=== PATIENT | female | born 1985 | race American Indian/Alaskan Native ===

== ENCOUNTER 2019-06-14 13:46 | Emergency (ER) | payer SELFPAY ==
--- NOTE | 2019-06-14 14:55 | Event Note ---
ED Screening Note Date of service: 06/14/19 Time: 14:49 ED Screening Note: 33 y/o female comes in for 3 week history of abd pain. Has been vomiting for 3 week. Just spitting in triage. LMP 04/21/19. . No home preg. No vag bleeding. This initial assessment/diagnostic orders/clinical plan/treatment(s) is/are subject to change based on patients health status, clinical progression and re- assessment by fellow clinical providers in the ED. Further treatment and workup at subsequent clinical providers discretion. Patient/guardian urged not to elope from the ED as their condition may be serious if not clinically assessed and managed. Initial orders include:
[2019-06-14 15:27] LABS: Basophils # (Auto) 0.1 K/mm3 (0.0-0.1); Basophils % (Auto) 0.8 % (0.0-1.8); Eosinophils % (Auto) 0.3 % (0.0-4.3); Hematocrit 37.2 % (30.3-42.9); Hemoglobin 12.5 gm/dl (10.1-14.3); Lymphocytes # (Auto) 1.9 K/mm3 (1.2-5.4); Lymphocytes % (Auto) 23.6 % (13.4-35.0); Mean Corpuscular HGB Conc 34 % (30-34); Mean Corpuscular Volume 92 fl (79-97); Monocytes % (Auto) 12.6 % (0.0-7.3); Platelet Count 344 K/mm3 (140-440); Red Blood Count 4.07 M/mm3 (3.65-5.03); Red Cell Distribution Width 14.4 % (13.2-15.2)
[2019-06-14 15:44] LABS: Bilirubin,Urine NEG (Negative); Blood,Urine NEG (Negative); Color,Urine Yellow (Yellow); Mucus,Urine 2+ /HPF; Protein,Urine <15 mg/dL mg/dL (Negative)
[2019-06-14 15:48] LABS: Alanine Aminotransferase 9 units/L (7-56); Albumin 3.9 g/dL (3.9-5); BUN/Creatinine Ratio 16; Blood Urea Nitrogen 8 mg/dL (7-17); Calcium 8.8 mg/dL (8.4-10.2); Hemolysis Index 1
--- NOTE | 2019-06-14 17:23 | Emergency Department Report ---
HPI - General Chief Complaint: Abdominal Pain Time Seen by Provider: 06/14/19 14:49 - HPI HPI: 33 YO TO ER WITH N/V FOR SEVERAL DAYS. SHE IS CONCERNED SHE IS . LMP 6/3. . NO VAG BLEEDING OR ABD PAIN. ED Past Medical Hx - Past Medical History Previous Medical History?: No - Surgical History Past Surgical History?: No - Family History Family history: no significant - Social History Smoking Status: Never Smoker Substance Use Type: None - Medications Home Medications: Home Medications Medication Instructions Recorded Confirmed Last Taken Type Ondansetron [Zofran Odt] 4 mg PO Q8HR PRN #10 tab.rapdis 06/14/19 Unknown Rx ED Review of Systems ROS: Stated complaint: VOMIT/ POSS Other details as noted in HPI Comment: All other systems reviewed and negative Physical Exam - Physical Exam Vital Signs: Vital Signs 06/14/19 14:49 Temperature 97.7 F Pulse Rate 87 Respiratory 18 Rate Blood Pressure 120/87 O2 Sat by Pulse 100 Oximetry Physical Exam: ALERT AND ORIENTED FAMILY IS INTERPRETING S1S2 LUNGS CTA ABD SNT NO CVA TENDERNESS ED Course Vital Signs 06/14/19 14:49 Temperature 97.7 F Pulse Rate 87 Respiratory 18 Rate Blood Pressure 120/87 O2 Sat by Pulse 100 Oximetry ED Medical Decision Making - Lab Data Result diagrams: 06/14/19 15:12 06/14/19 15:12 - Radiology Data Radiology results: report reviewed, image reviewed - Medical Decision Making Lab Results 06/14/19 06/14/19 06/14/19 Range/Units 15:12 15:12 15:12 WBC 8.1 (4.5-11.0) K/mm3 RBC 4.07 (3.65-5.03) M/mm3 Hgb 12.5 (10.1-14.3) gm/dl Hct 37.2 (30.3-42.9) % MCV 92 (79-97) fl MCH 31 (28-32) pg MCHC 34 (30-34) % RDW 14.4 (13.2-15.2) % Plt Count 344 (140-440) K/mm3 Lymph % (Auto) 23.6 (13.4-35.0) % [place] % (Auto) 12.6 H (0.0-7.3) % Eos % (Auto) 0.3 (0.0-4.3) % Baso % (Auto) 0.8 (0.0-1.8) % Lymph # 1.9 (1.2-5.4) K/mm3 [place] # 1.0 H (0.0-0.8) K/mm3 Eos # 0.0 (0.0-0.4) K/mm3 Baso # 0.1 (0.0-0.1) K/mm3 Seg Neutrophils % 62.7 (40.0-70.0) % Seg Neutrophils # 5.1 (1.8-7.7) K/mm3 Sodium 136 L (137-145) mmol/L Potassium 4.1 (3.6-5.0) mmol/L Chloride 102.4 (98-107) mmol/L Carbon Dioxide 23 (22-30) mmol/L Anion Gap 15 mmol/L BUN 8 (7-17) mg/dL Creatinine 0.5 L (0.7-1.2) mg/dL Estimated GFR > 60 ml/min BUN/Creatinine Ratio 16 % Glucose 82 (65-100) mg/dL Calcium 8.8 (8.4-10.2) mg/dL Total Bilirubin 0.30 (0.1-1.2) mg/dL AST 13 (5-40) units/L ALT 9 (7-56) units/L Alkaline Phosphatase 55 (35-129) units/L Total Protein 7.7 (6.3-8.2) g/dL Albumin 3.9 (3.9-5) g/dL Albumin/Globulin Ratio 1.0 % HCG, Quant 088960 H (0-4) mIU/mL Urine Color (Yellow) Urine Turbidity (Clear) Urine pH (5.0-7.0) Ur Specific [place] (1.003-1.030) Urine Protein (Negative) mg/dL Urine Glucose (UA) (Negative) mg/dL Urine Ketones (Negative) mg/dL Urine Blood (Negative) Urine Nitrite (Negative) Urine Bilirubin (Negative) Urine Urobilinogen (<2.0) mg/dL Ur Leukocyte Esterase (Negative) Urine WBC (Auto) (0.0-6.0) /HPF Urine RBC (Auto) (0.0-6.0) /HPF U Epithel Cells (Auto) (0-13.0) /HPF Urine Mucus /HPF 08/05/19 Range/Units 15:27 WBC (4.5-11.0) K/mm3 RBC (3.65-5.03) M/mm3 Hgb (10.1-14.3) gm/dl Hct (30.3-42.9) % MCV (79-97) fl MCH (28-32) pg MCHC (30-34) % RDW (13.2-15.2) % Plt Count (140-440) K/mm3 Lymph % (Auto) (13.4-35.0) % [place] % (Auto) (0.0-7.3) % Eos % (Auto) (0.0-4.3) % Baso % (Auto) (0.0-1.8) % Lymph # (1.2-5.4) K/mm3 [place] # (0.0-0.8) K/mm3 Eos # (0.0-0.4) K/mm3 Baso # (0.0-0.1) K/mm3 Seg Neutrophils % (40.0-70.0) % Seg Neutrophils # (1.8-7.7) K/mm3 Sodium (137-145) mmol/L Potassium (3.6-5.0) mmol/L Chloride (98-107) mmol/L Carbon Dioxide (22-30) mmol/L Anion Gap mmol/L BUN (7-17) mg/dL Creatinine (0.7-1.2) mg/dL Estimated GFR ml/min BUN/Creatinine Ratio % Glucose (65-100) mg/dL Calcium (8.4-10.2) mg/dL Total Bilirubin (0.1-1.2) mg/dL AST (5-40) units/L ALT (7-56) units/L Alkaline Phosphatase (35-129) units/L Total Protein (6.3-8.2) g/dL Albumin (3.9-5) g/dL Albumin/Globulin Ratio % HCG, Quant (0-4) mIU/mL Urine Color Yellow (Yellow) Urine Turbidity Slightly-cloudy (Clear) Urine pH 6.0 (5.0-7.0) Ur Specific [place] 1.026 (1.003-1.030) Urine Protein <15 mg/dl (Negative) mg/dL Urine Glucose (UA) Neg (Negative) mg/dL Urine Ketones Neg (Negative) mg/dL Urine Blood Neg (Negative) Urine Nitrite Neg (Negative) Urine Bilirubin Neg (Negative) Urine Urobilinogen 2.0 (<2.0) mg/dL Ur Leukocyte Esterase Neg (Negative) Urine WBC (Auto) 1.0 (0.0-6.0) /HPF Urine RBC (Auto) 4.0 (0.0-6.0) /HPF U Epithel Cells (Auto) 8.0 (0-13.0) /HPF Urine Mucus 2+ /HPF Vital Signs 06/14/19 14:49 Temperature 97.7 F Pulse Rate 87 Respiratory 18 Rate Blood Pressure 120/87 O2 Sat by Pulse 100 Oximetry US NOTED DC HOME WITH OBGYN FOLLOW UP - Differential Diagnosis RO PREG/UTI Critical care attestation.: If time is entered above; I have spent that time in minutes in the direct care of this critically ill patient, excluding procedure time. ED Disposition Clinical Impression: Disposition: DC-01 TO HOME OR SELFCARE Is pt being admited?: No Does the pt Need Aspirin: No Condition: Stable Instructions: (ED) Additional Instructions: AVOID DRUGS, ALCOHOL, CIG SMOKING VITAMIN; CAN OBTAIN OVER THE COUNTER SAFE SEX TYLENOL FOR PAIN MED ORDERED TODAY FOLLOW UP WITH OBGYN PEGGY REFERRAL BELOW Prescriptions: Ondansetron [Zofran Odt] 4 mg PO Q8HR PRN #10 tab.rapdis PRN Reason: Vomiting Referrals: SAL ESQUIVEL MD [Staff Physician] - 3-5 Days Time of Disposition: 18:00
--- NOTE | 2019-06-14 17:56 | Ultrasound Report ---
OB ultrasound. 06/14/2019. HISTORY: Pelvic pain. FINDINGS: Imaging was performed transabdominally and endovaginally. The uterus measures 10.5 x 6.7 x 7.7 cm. A viable is dated 9 weeks 3 days. heart tone s are 172 bpm. Right ovary measures 4 x 2.8 x 2.3 cm and contains a probable corpus luteum cyst. Left ovary normal m easuring 2.7 x 1.3 x 3 cm. Negative for adnexal mass or fluid. IMPRESSION: 1. Viable intrauterine dated 9 weeks 3 days. 2. Probable corpus luteum cyst right ovary. Signer Name: Michael Tejeda MD Signed: 06/14/2019 5:52 PM Workstation Name: [id number]
[2019-06-14] MEDS ORDERED: ZOFRAN ODT PO ONE (18:07)
[2019-06-14 18:23] VITALS: BP 140/94
== END 2019-06-14 18:23 | disposition home or self-care (01) ==
LOC: ED 13:46
DX: O21.8 Other vomiting complicating pregnancy (principal); O26.899 Other specified pregnancy related conditions, unspecified trimester; R10.9 Unspecified abdominal pain; Z3A.00 Weeks of gestation of pregnancy not specified
CPT/HCPCS: 36415; 76801; 76817; 80053; 81001; 84702; 85025; Q0162

== ENCOUNTER 2020-01-19 02:26 | Inpatient (IN) | payer OTHER ==
[2020-01-19] MEDS ORDERED: MINERAL OIL 30 ML ORAL LIQD PO PRN (03:05)
[2020-01-19] MEDS ORDERED: ePHEDrine SULFATE 50 MG/1 ML INJ IV PRN ×2 (03:05→11:43)
[2020-01-19] MEDS ORDERED: TERBUTALINE 1 MG/1 ML INJ SUB-Q PRN (03:05)
[2020-01-19] MEDS ORDERED: AMPICILLIN/NS 2 GM/100 ML 2 GM/100 ML BAG IV ONE (03:05)
[2020-01-19] MEDS ORDERED: LIDOCAINE (2%) 20 MG/1 ML VIAL 20 ML MDV INFILTRATI ONE (03:05)
[2020-01-19] MEDS ORDERED: TERBUTALINE 1 MG/1 ML INJ IVP PRN (03:05)
[2020-01-19] MEDS ORDERED: LACTATED RINGERS 1,000 ML IV SCH ×2 (04:00→09:00)
[2020-01-19] MEDS ORDERED: OXYTOCIN 20 UNIT/1000ML DRIP 20 UNITS/1,000 ML BAG IV SCH ×3 (04:00→18:00)
[2020-01-19 04:26] LABS: Basophils # (Auto) 0.1 K/mm3 (0.0-0.1); Basophils % (Auto) 0.8 % (0.0-1.8); Eosinophils % (Auto) 0.5 % (0.0-4.3); Hemoglobin 11.2 gm/dl (10.1-14.3); Lymphocytes # (Auto) 2.5 K/mm3 (1.2-5.4); Lymphocytes % (Auto) 29.3 % (13.4-35.0); Mean Corpuscular HGB Conc 33 % (30-34); Mean Corpuscular Volume 92 fl (79-97); Monocytes % (Auto) 11.6 % (0.0-7.3); Platelet Count 226 K/mm3 (140-440); Red Blood Count 3.68 M/mm3 (3.65-5.03); Red Cell Distribution Width 16.1 % (13.2-15.2)
[2020-01-19 04:51] LABS: Hepatitis C Virus Antibody Non-Reactive (NonReactive)
--- NOTE | 2020-01-19 04:54 | Ultrasound Report ---
ULTRASOUND OBSTETRIC LIMITED INDICATION / CLINICAL INFORMATION: limited care. TECHNIQUE: Transabdominal ultrasound imaging. COMPARISON: None available. FINDINGS: HEART RATE (beats per minute): 144 AMNIOTIC FLUID INDEX (cm) = not calculated PRESENTATION: Cephalic. ADDITIONAL FINDINGS: The placenta is located fundal and left lateral in position. There is no evidenc e of placental abruption at this time. IMPRESSION: Single viable IUP. No evidence for placental abruption. Signer Name: Abigail Hare MD Signed: 01/19/2020 4:49 AM Workstation Name: [id number]
[2020-01-19] MEDS ORDERED: BUTORPHANOL 2 MG/1 ML INJ IV PRN (05:58)
[2020-01-19] MEDS ORDERED: fentaNYL 100 MCG/2 ML INJ IV SCH (06:00)
[2020-01-19] MEDS ORDERED: AMPICILLIN/NS 1 GM/50 ML 1 GM/50 ML BAG IV SCH (07:06)
--- NOTE | 2020-01-19 07:56 | History and Physical Report ---
History of Present Illness Date of examination: 01/19/20 Date of admission: 01/19/20 05:08 Chief complaint: Contractions History of present illness: Platform Supervisor #[phone] utilized throughout history collection for this patient. Pt is a Norwegian-speaking 34 yo at 40.5 weeks EGA (per pt report) who presents with regular uterine contractions since last night. She denies leaking fluid, but reports some spotting last night that has since resolved. She has received limited care, and states she does not know the providers she has seen or hospitals she has presented to. She reports feeling safe at home and denies s/sx abuse. She denies elevated blood pressure this . She reports her previous was without complication, and she had a vaginal , weight unknown. GBS unknown. Ultrasound in triage reveals no previa or abruption, and cephalic presentation. Past History Past Medical History: no pertinent history Past Surgical History: no surgical history Social history: , other (Norwegian-speaking) - Obstetrical History Expected Date of Delivery: 01/14/20 Actual Gestation: 40 Week(s) 5 Day(s) : 2 Para: 1 Hx # Term Pregnancies: 1 Number of Pregnancies: 0 Spontaneous Abortions: 0 Induced : 0 Number of Living Children: 1 Medications and Allergies Allergies Allergy/AdvReac Type Severity Reaction Status Date / Time Nivaquine Allergy Itching Uncoded 06/14/19 13:51 Home Medications Medication Instructions Recorded Confirmed Last Taken Type No Known Home Medications [No 01/19/20 01/19/20 Unknown History Reported Home Medications] Active Meds: Active Medications Butorphanol Tartrate (Stadol) 2 mg IV Q2H PRN PRN Reason: Labor Pain Last Admin: 01/19/20 06:14 Dose: 2 mg Documented by: Ephedrine Sulfate (Ephedrine Sulfate) 10 mg IV Q2M PRN PRN Reason: Hypotension Fentanyl (Sublimaze) 100 mcg IV Q2H JAKY Oxytocin/Sodium Chloride (Pitocin/Ns 20 Unit/1000ml Drip) 20 units in 1,000 mls @ 125 mls/hr IV DIRECT JAKY Lactated Ringer's (Lactated Ringers) 1,000 mls @ 125 mls/hr IV DIRECT JAKY Last Admin: 01/19/20 04:50 Dose: 125 mls/hr Documented by: Ampicillin Sodium (Ampicillin/Ns 1 Gm/50 Ml) 1 gm in 50 mls @ 100 mls/hr IV Q4HR JAKY; Protocol Mineral Oil (Mineral Oil) 30 ml PO QHS PRN PRN Reason: Constipation Terbutaline Sulfate (Brethine) 0.25 mg SUB-Q ONCE PRN PRN Reason: Hyperstimulation/Hypertonicity Terbutaline Sulfate (Brethine) 0.25 mg IVP ONCE PRN PRN Reason: Hyperstimulation/Hypertonicity Review of Systems All systems: negative Genitourinary: contractions, no vaginal bleeding (not currently), no leakage of fluid, no genital sores - Vital Signs Vital signs: Vital Signs Pulse BP 96 H 119/80 01/19/20 02:43 01/19/20 02:43 Temp Pulse Resp BP Pulse Ox 98.2 F 122 H 18 128/77 100 01/19/20 04:15 01/19/20 07:47 01/19/20 04:15 01/19/20 07:40 01/19/20 07:47 - Physical Exam Lungs: Positive: Normal air movement Abdomen: Positive: soft Genitourinary (Female): Positive: normal external genitalia, normal perenium. Negative: perineal/vulvar lesions Vagina: Positive: normal moisture Uterus: Positive: enlarged (gravid) Extremities: Positive: normal - Obstetrical FHR: category 1 Uterine Contraction Monitor Mode: External Cervical Dilatation: 4 Cervical Effacement Percentage: 80 station: -3 Uterine Contraction Frequency (min): 5 Uterine Contraction Pattern: Regular Uterine Tone Measurement Phase: Contraction Uterine Contraction Intensity: Moderate Results Result Diagrams: 01/19/20 03:50 Abnormal lab results 01/19/20 Range/Units 03:50 RDW 16.1 H (13.2-15.2) % [place] % (Auto) 11.6 H (0.0-7.3) % [place] # 1.0 H (0.0-0.8) K/mm3 All other labs normal. Assessment and Plan A: 34 yo at 40.5 weeks EGA Active labor GBS unknown, s/p 1 dose Ampicillin Membranes intact Limited care Norwegian-speaking P: Admit for labor AROM clear fluid at 0745, initiate Pitocin augmentation Pain relief as requested NOB labs Anticipate
[2020-01-19] MEDS ORDERED: OXYTOCIN DRIP 30 UNITS/500 ML BAG IV SCH (09:00)
[2020-01-19] MEDS ORDERED: DEXMEDETOMIDINE 200 MCG/2 ML VIAL IV ONE ×2 (11:41→16:18)
[2020-01-19] MEDS ORDERED: NALOXONE 2 MG/2 ML INJ IV PRN (11:43)
--- NOTE | 2020-01-19 11:44 | Anesthesia Consultation ---
Anesthesia Consult and Med Hx Date of service: 01/19/20 - Airway Anesthetic Teeth Evaluation: Good ROM Head & Neck: Adequate Mental/Hyoid Distance: Adequate Mallampati Class: Class II Intubation Access Assessment: Probably Good - Pulmonary Exam CTA: Yes - Cardiac Exam Cardiac Exam: RRR - Pre-Operative Health Status ASA Pre-Surgery Classification: ASA2 Proposed Anesthetic Plan: Epidural - Pulmonary Hx Asthma: No - Cardiovascular System Hx Hypertension: No - Central Nervous System Hx Seizures: No Hx Psychiatric Problems: No - Endocrine Hx Renal Disease: No Hx Hypothyroidism: No Hx Hyperthyroidism: No - Hematic Hx Anemia: No Hx Sickle Cell Disease: No - Other Systems Hx Alcohol Use: No
[2020-01-19] MEDS ORDERED: fentaNYL-BUPIV 2 MCG/ML-0.125% 200 MCG/100 ML BAG EPIDURAL SCH (12:00)
--- NOTE | 2020-01-19 13:31 | Event Note ---
Date: 01/19/20 Called to bedside for variable decelerations. FHT category 1 upon entry to room, pt receiving O2, on left lateral, Pitocin off. Per RN, SVE /-3. Repositioned pt to exaggerated left lateral with peanut ball between legs. Continue Pitocin augmentation.
[2020-01-19] MEDS ORDERED: BICITRA ORAL LIQD 30ML ONE (16:05)
[2020-01-19] MEDS ORDERED: FAMOTIDINE 20 MG/2 ML INJ IV ONE (16:06)
[2020-01-19] MEDS ORDERED: METOCLOPRAMIDE 10 MG/2 ML INJ ONE (16:06)
[2020-01-19] MEDS ORDERED: SODIUM BICARB 8.4% 50 MEQ/50 ML VIAL IV ONE (16:18)
[2020-01-19] MEDS ORDERED: KETOROLAC 30 MG/1 ML INJ ONE (16:18)
[2020-01-19] MEDS ORDERED: OXYTOCIN 10 UNIT/1 ML INJ ONE (16:18)
[2020-01-19] MEDS ORDERED: LIDOCAINE 2%/EPINEPHRINE 1:200,000 VIAL (20 ML) INFILTRATI ONE (16:18)
[2020-01-19] MEDS ORDERED: ceFAZolin/STERILE WATER 2 GM/20 ML SYRINGE IV ONE (16:20)
[2020-01-19] MEDS ORDERED: WATER FOR IRRIG STERILE 1,500 ML BOTTLE IR ONE (16:32)
[2020-01-19] MEDS ORDERED: SODIUM CHLORIDE 0.9% IRR 1,500 ML BOTTLE IR ONE (16:32)
[2020-01-19] MEDS ORDERED: MORPHINE 2 MG/1 ML INJ IV PRN (17:21)
[2020-01-19] MEDS ORDERED: HYDROCORTISONE 25 MG RECTAL SUPP PR PRN (17:21)
[2020-01-19] MEDS ORDERED: ONDANSETRON 4 MG/2 ML INJ IV PRN (17:21)
[2020-01-19] MEDS ORDERED: SIMETHICONE 80 MG CHEW TAB PO PRN (17:21)
[2020-01-19] MEDS ORDERED: PROMETHAZINE 25 MG RECT SUPP PR PRN (17:21)
[2020-01-19] MEDS ORDERED: KETOROLAC 30 MG/1 ML INJ IV PRN (17:21)
[2020-01-19] MEDS ORDERED: MORPHINE 4 MG/1 ML INJ IV PRN (17:21)
[2020-01-19] MEDS ORDERED: WITCH HAZEL/ GLYCERIN PAD TP PRN (17:21)
[2020-01-19] MEDS ORDERED: NALOXONE 0.4 MG/1 ML INJ IV PRN (17:21)
[2020-01-19] MEDS ORDERED: MAGNESIUM HYDROXIDE (MOM) ORAL LIQD UDC PO PRN (17:21)
[2020-01-19] MEDS ORDERED: ACETAMINOPHEN 325 MG TAB PO PRN (17:21)
[2020-01-19] MEDS ORDERED: oxyCODONE /ACETAMINOPHEN 5-325MG TAB PO PRN (17:21)
[2020-01-19] MEDS ORDERED: SENNOSIDES 8.6 MG TAB PO PRN (17:21)
[2020-01-19] MEDS ORDERED: HYDROcodone/ACETAMINOPHEN 5-325 MG TAB PO PRN (17:21)
[2020-01-19] MEDS ORDERED: LANOLIN/ZINC/DIMETHICONE (LANSINOH) 7 GM TP PRN (17:21)
[2020-01-19] MEDS ORDERED: D5W/LACTATED RINGERS 1,000 ML IV SCH (18:00)
[2020-01-19] MEDS: ceFAZolin/NS 1 GM/50 ML 1 GM/50 ML BAG IV SCH (21:24)
[2020-01-20] MEDS: KETOROLAC 30 MG/1 ML INJ IV PRN ×3 (00:30→14:10)
[2020-01-20] MEDS: ceFAZolin/NS 1 GM/50 ML 1 GM/50 ML BAG IV SCH (04:55)
[2020-01-20 05:59] LABS: Hematocrit 29.9 % (30.3-42.9); Hemoglobin 9.8 gm/dl (10.1-14.3)
[2020-01-20] MEDS ORDERED: TETANUS,DIPH,PERTUSS(ACELL) VACCINE 0.5 ML SYRINGE IM ONE (06:00)
[2020-01-20] MEDS: PRENATAL VIT27-FE FUMARATE-FOLIC ACID VIT TAB PO SCH (11:46)
[2020-01-20] MEDS: FERROUS SULFATE 325 MG TAB PO SCH (11:46)
--- NOTE | 2020-01-20 13:39 | Progress Note ---
Assessment and Plan A: POD1 s/p primary LTCS Vital signs stable Acute anemia due to blood loss Limited care Uzbek-speaking P: Routine pp care Ferrous sulfate supplementation Case management consult Subjective - Subjective Date of service: 01/20/20 Principal diagnosis: s/p primary LTCS Interval history: System Software Developer #[id number] utilized throughout encounter for this patient. Pt is POD1 s/p primary LTCS Pt is a Uzbek-speaking 34 yo at 40.5 weeks EGA (per pt report) who presents with regular uterine contractions since last night. She denies leaking fluid, but reports some spotting last night that has since resolved. She has received limited care, and states she does not know the providers she has seen or hospitals she has presented to. She reports feeling safe at home and denies s/sx abuse. She denies elevated blood pressure this . She reports her previous was without complication, and she had a vaginal , weight unknown. GBS unknown. Ultrasound in triage reveals no previa or abruption, and cephalic presentation. Patient reports: appetite normal, voiding normally, pain well controlled, flatus, ambulating normally [place]: doing well, nursing well, bottle feeding (both) Objective - Vital Signs Latest vital signs: Vital Signs Temp Pulse Resp BP BP Pulse Ox 01/20/20 11:39 98.7 F 89 22 102/57 97 01/20/20 08:14 98.8 F 98 H 20 110/83 99 01/20/20 05:06 98.3 F 85 20 110/69 97 01/20/20 00:40 98.1 F 70 18 109/73 97 01/19/20 19:30 98 F 72 18 106/73 99 01/19/20 19:15 97.8 F 71 18 115/75 99 01/19/20 18:25 74 18 110/77 99 01/19/20 18:10 85 19 105/75 99 01/19/20 17:55 76 14 111/68 99 01/19/20 17:40 84 21 107/55 99 01/19/20 17:35 86 17 105/54 99 01/19/20 17:30 98.1 F 87 14 102/59 99 01/19/20 15:49 115 H 100 01/19/20 15:44 97 H 100 01/19/20 15:39 94 H 100 01/19/20 15:35 93 H 125/75 01/19/20 15:34 87 100 01/19/20 15:29 83 100 01/19/20 15:24 92 H 100 01/19/20 15:19 98 H 100 01/19/20 15:14 78 100 01/19/20 15:09 89 100 01/19/20 15:04 79 100 01/19/20 14:59 79 100 01/19/20 14:54 82 100 01/19/20 14:49 92 H 100 01/19/20 14:44 90 99 01/19/20 14:39 96 H 100 01/19/20 14:34 99 H 100 01/19/20 14:33 94 H 125/69 01/19/20 14:29 91 H 100 01/19/20 14:24 75 100 01/19/20 14:19 84 100 01/19/20 14:14 79 100 01/19/20 14:09 79 100 01/19/20 14:04 83 100 01/19/20 13:59 88 100 01/19/20 13:54 83 100 01/19/20 13:49 84 100 01/19/20 13:44 95 H 100 01/19/20 13:39 100 H 100 Intake and Output 01/19/20 01/20/20 01/20/20 23:59 07:59 15:59 Intake Total 750 360 Output Total 450 Balance 300 360 Intake: IV 750 ANCEF/NS 1 GM/50 ML 1 gm 50 In 50 ml @ 100 mls/hr IV Q8H [facility] Rx#:[id number] Oral 360 Output: Urine 450 Other: Total, Intake Amount 360 # Voids 360 - Exam Lungs: Present: Normal air movement Abdomen: Present: soft Uterus: Present: firm, fundal height below umbilicus. Absent: bogginess Extremities: Present: normal Incision: Present: dressed - Labs Labs: Abnormal lab results 01/20/20 Range/Units 05:26 Hgb 9.8 L (10.1-14.3) gm/dl Hct 29.9 L (30.3-42.9) %
[2020-01-20] MEDS ORDERED: MEASLES, MUMPS & RUBELLA 12,500 UNIT/0.5 ML VACCINE SUB-Q ONE (17:23)
--- NOTE | 2020-01-20 18:23 | Post Anesthesia Evaluation ---
- Post Anesthesia Evaluation Patient Participated: Yes Airway Patent: Yes Stable Respiratory Function: Yes Nausea/Vomiting: No Temp > 96.8F: Yes Pain Manageable: Yes Adequeate Hydration: Yes Anesthesia Complications: No Block Receding Appropriately: Yes
[2020-01-20] MEDS: IBUPROFEN 800 MG TAB PO PRN (18:47)
[2020-01-21] MEDS: IBUPROFEN 800 MG TAB PO PRN ×2 (05:27→16:58)
--- NOTE | 2020-01-21 08:10 | Progress Note ---
Assessment and Plan A: POD#2 s/p primary Anemia P: Routine postoperative care Subjective - Subjective Date of service: 01/21/20 Principal diagnosis: s/p primary LTCS Interval history: is healthcare interpreter. Pt reports flatus. Ambulating minimally. Patient reports: appetite normal, voiding normally, pain well controlled, flatus, ambulating normally, no bowel movement : doing well Objective - Vital Signs Latest vital signs: Vital Signs Temp Pulse Resp BP Pulse Ox 01/20/20 23:28 98.5 F 100 H 20 104/65 98 01/20/20 15:56 98.2 F 87 20 100/67 96 01/20/20 11:39 98.7 F 89 22 102/57 97 01/20/20 08:14 98.8 F 98 H 20 110/83 99 Intake and Output 01/20/20 01/21/20 01/21/20 22:59 06:59 14:59 Intake Total 1320 Output Total 600 Balance 720 Intake: Oral 1320 Output: Urine 600 Void 600 Other: Total, Intake Amount 120 Total, Output Amount 600 Voiding Method Toilet # Voids 1 Void 2 - Exam Breasts: Present: deferred Cardiovascular: Present: Regular rate Lungs: Present: Clear to auscultation Abdomen: Present: soft, abnormal bowel sounds (hypoactive bowel sounds ) Uterus: Present: normal Extremities: Present: normal
[2020-01-21] MEDS ORDERED: oxyCODONE /ACETAMINOPHEN 5-325MG TAB PO PRN (09:00)
[2020-01-21] MEDS: FERROUS SULFATE 325 MG TAB PO SCH (11:14)
[2020-01-21] MEDS: PRENATAL VIT27-FE FUMARATE-FOLIC ACID VIT TAB PO SCH (11:14)
[2020-01-22] MEDS: IBUPROFEN 800 MG TAB PO PRN ×2 (00:10→09:35)
[2020-01-22] MEDS: PRENATAL VIT27-FE FUMARATE-FOLIC ACID VIT TAB PO SCH (09:36)
[2020-01-22] MEDS: FERROUS SULFATE 325 MG TAB PO SCH (09:36)
--- NOTE | 2020-01-22 11:25 | Progress Note ---
Assessment and Plan A: POD3 s/p primary LTCS Vital signs stable Acute anemia due to blood loss Limited care Turkmen-speaking P: Routine pp care Ferrous sulfate supplementation S/p case management consult Discharge to home today Subjective - Subjective Date of service: 01/22/20 Principal diagnosis: s/p primary LTCS Interval history: [employer] Supervisor #[id number] utilized throughout encounter for this patient. Pt is POD3 s/p primary LTCS Patient reports: appetite normal, voiding normally, pain well controlled, flatus, ambulating normally [place]: doing well, nursing well, bottle feeding (both) Objective - Vital Signs Latest vital signs: Vital Signs Temp Pulse Resp BP Pulse Ox 01/22/20 07:28 83 108/72 100 01/22/20 01:24 98.3 F 92 H 18 107/58 96 01/22/20 00:10 20 Intake and Output 01/21/20 01/22/20 01/22/20 23:59 07:59 15:59 Intake Total 360 Output Total 600 Balance -240 Intake: Oral 360 Output: Urine 600 Void 600 Other: Total, Intake Amount 360 Total, Output Amount 600 Voiding Method Toilet # Bowel Movements 0 - Exam Lungs: Present: Normal air movement Abdomen: Present: soft Uterus: Present: firm, fundal height below umbilicus. Absent: bogginess Incision: Present: normal, dry, intact
--- NOTE | 2020-01-22 11:25 | Discharge Summary ---
Providers - Providers Date of Admission: 01/19/20 05:08 Date of discharge: 01/22/20 Attending physician: BARBIE ESQUIVEL MD 01/20/20 13:40 Consult to Case Management [CONS] Routine Services Needed at Discharge: Nuclear Powerplant Mechanic Notified:: yes Phone number called:: [phone] Was contact made?: Yes If yes, spoke with:: yes Time called:: 09:32 Comment:: Pt had no care, Nepali-speaking Primary care physician: BARBIE ESQUIVEL MD Hospitalization Reason for admission: active labor Delivery: Procedure: primary low transverse Episiotomy: none Laceration: none Incision: normal, dry, intact Other procedures: none complications: none Discharge diagnosis: IUP at term delivered Hospital course: Pt arrived in active labor and progressed to 9cm dilation with swollen cervix. Progress stalled and she underwent a primary LTCS for arrest of dilation with variable FHR decelerations. course uncomplicated. She met discharge criteria on POD3. Condition at discharge: Good Disposition: DC-01 TO HOME OR SELFCARE Plan - Discharge Medications Prescriptions: Ferrous Sulfate [Feosol 325 MG tab] 325 mg PO BID #60 tablet Ibuprofen [Motrin] 800 mg PO Q8HR PRN #30 tablet PRN Reason: Pain, Moderate (4-6) oxyCODONE /ACETAMINOPHEN [Percocet 5/325] 1 tab PO Q6HR PRN #40 tablet PRN Reason: Pain - Provider Discharge Summary Activity: routine, no sex for 6 weeks, no heavy lifting 4 weeks, no strenuous exercise Diet: routine Instructions: routine Additional instructions: [] Smoking cessation referral if applicable(refer to patient education folder for contact #) [] Refer to [facility] Booklet Call your doctor immediately for: * Fever > 100.5 * Heavy vaginal bleeding ( >1 pad per hour) * Severe persistent headache * Shortness of breath * Reddened, hot, painful area to leg or breast * Drainage or odor from incision. * Keep incision clean and dry at all times and follow doctor's instructions regarding bathing/showering - Follow up plan Follow up: REYNA RAI CNM [Advanced Practice Nurse] - 14 Days (Please call to schedule appointment.)
[2020-01-22 16:10] VITALS: BP 108/78
== END 2020-01-22 15:10 | disposition home or self-care (01) | DRG 787 ==
LOC: TRG 02:26 → LD 05:08 → OB 19:26
PROVIDERS: ADMIT Obstetrics & Gynecology; ATTEND Obstetrics & Gynecology
PROC: 10D00Z1 Extraction of Products of Conception, Low, Open Approach (ICD-10-PCS; principal; 2020-01-19)
PROC: 3E0234Z Introduction of Serum, Toxoid and Vaccine into Muscle, Percutaneous Approach (ICD-10-PCS; 2020-01-20)
PROC: 3E0134Z Introduction of Serum, Toxoid and Vaccine into Subcutaneous Tissue, Percutaneous Approach (ICD-10-PCS; 2020-01-20)
DX: O76 Abnormality in fetal heart rate and rhythm complicating labor and delivery (principal); D62 Acute posthemorrhagic anemia; O99.03 Anemia complicating the puerperium; O62.0 Primary inadequate contractions; Z3A.40 40 weeks gestation of pregnancy; Z37.0 Single live birth; Z23 Encounter for immunization
CPT/HCPCS: 36415; 59025; 76815; 85014; 85018; 85025; 86592; 86706; 86762; 86803; 86850; 86900; 86901; 87806; G0378; C1765; J0290; J0595; J0690; J1885; J2590; J2765; J3010; J3490; J7120; J7121

== ENCOUNTER 2020-08-21 15:50 | Emergency (ER) | payer MEDICAID ==
[2020-08-21 16:22] VITALS: BP 141/98
== END 2020-08-21 22:30 | disposition left against medical advice (07) ==
LOC: ED 15:50
DX: E11.9 Type 2 diabetes mellitus without complications (principal); Z53.21 Procedure and treatment not carried out due to patient leaving prior to being seen by health care provider
CPT/HCPCS: 82962

== ENCOUNTER 2022-07-02 18:00 | Emergency (ER) | payer SELFPAY ==
[2022-07-02 20:00] VITALS: BP 131/84
[2022-07-02 20:29] LABS: HCG Qualitative,Urine Positive (Negative)
[2022-07-03] MEDS ORDERED: FAMOTIDINE 20 MG TAB PO ONE (03:26)
[2022-07-03] MEDS ORDERED: ACETAMINOPHEN 500 MG TAB PO ONE (03:26)
[2022-07-03] MEDS: ONDANSETRON 4 MG ODT TAB PO ONE (04:10)
--- NOTE | 2022-07-03 05:11 | Emergency Department Report ---
<TIFFANIE PRICE - Last Filed: 07/03/22 07:25> ED Abdominal Pain HPI - General Chief Complaint: Abdominal Pain Stated Complaint: STOMACH PAIN Source: patient Mode of arrival: Ambulatory Limitations: No Limitations - History of Present Illness Initial Comments: Patient is a A0 36-year-old -[place] female who is approximately 7 to 8 weeks gestation who presents to the ED with complaint of acute onset persistent diffuse lower abdominal pain with nausea and vomiting for the last 1 week, worse in the last 3 days. Patient states that the pain has been constant and persistent and especially worsening with vomiting. Patient denies vaginal bleeding, vaginal discharge,, dysuria, urinary frequency and urgency, low back pain, diarrhea, dizziness, syncope, lightheadedness, low back pain, fever and chills. MD Complaint: abdominal pain, other (nausea and ) -: Gradual, week(s) (1) Location: LLQ, RLQ, suprapubic Radiation: none Migration to: LLQ, RLQ, suprapubic Severity: severe Severity scale (0 -10): 7 Quality: cramping, sharp Consistency: constant Improves With: nothing Worsens With: vomiting Context: other () Associated Symptoms: denies other symptoms, nausea, vomiting. denies: diarrhea, fever, chills, dysuria, hematemesis, hematochezia, melena, hematuria, anorexia, syncope - Related Data LMP Date: 06/06/22 Previous Rx's Medication Instructions Recorded Last Taken Type Ferrous Sulfate [Feosol 325 MG tab] 325 mg PO BID #60 tablet 01/22/20 Unknown Rx Ibuprofen [Motrin] 800 mg PO Q8HR PRN #30 tablet 01/22/20 Unknown Rx oxyCODONE /ACETAMINOPHEN [Percocet 1 tab PO Q6HR PRN #40 tablet 01/22/20 Unknown Rx 5/325] Acetaminophen [Tylenol] 500 mg PO Q6HR PRN #40 tablet 07/03/22 Unknown Rx Vit No.180/Iron/Folic 1 each PO DAILY #60 tab 07/03/22 Unknown Rx [ Plus Vitamin-Mineral] Promethazine [Phenergan] 25 mg PO Q6HR PRN #30 tab 07/03/22 Unknown Rx Allergies Allergy/AdvReac Type Severity Reaction Status Date / Time Nivaquine Allergy Itching Uncoded 06/14/19 13:51 ED Review of Systems Constitutional: denies: chills, fever Eyes: denies: eye pain, eye discharge, vision change ENT: denies: ear pain, throat pain Respiratory: denies: cough, shortness of breath, wheezing Cardiovascular: denies: chest pain, palpitations Endocrine: no symptoms reported Gastrointestinal: abdominal pain (suprapubic), nausea, vomiting. denies: diarrhea Genitourinary: denies: urgency, dysuria, frequency, hematuria, discharge, abnormal menses, dyspareunia Musculoskeletal: denies: back pain, joint swelling, arthralgia Skin: denies: rash, lesions Neurological: denies: headache, weakness, paresthesias Psychiatric: denies: anxiety, depression Hematological/Lymphatic: denies: easy bleeding, easy bruising ED Past Medical Hx - Past Medical History Hx Hypertension: No Hx Diabetes: No Hx Deep Vein Thrombosis: No Hx Renal Disease: No Hx Sickle Cell Disease: No Hx Seizures: No Hx Asthma: No - Surgical History Past Surgical History?: Yes Additional Surgical History: C- section - Social History Smoking Status: Unknown if ever smoked - Medications Home Medications: Home Medications Medication Instructions Recorded Confirmed Last Taken Type Ferrous Sulfate [Feosol 325 MG tab] 325 mg PO BID #60 tablet 01/22/20 Unknown Rx Ibuprofen [Motrin] 800 mg PO Q8HR PRN #30 tablet 01/22/20 Unknown Rx oxyCODONE /ACETAMINOPHEN [Percocet 1 tab PO Q6HR PRN #40 tablet 01/22/20 Unknown Rx 5/325] Acetaminophen [Tylenol] 500 mg PO Q6HR PRN #40 tablet 07/03/22 Unknown Rx Vit No.180/Iron/Folic 1 each PO DAILY #60 tab 07/03/22 Unknown Rx [ Plus Vitamin-Mineral] Promethazine [Phenergan] 25 mg PO Q6HR PRN #30 tab 07/03/22 Unknown Rx ED Physical Exam - General Limitations: No Limitations General appearance: alert, in no apparent distress - Head Head exam: Present: atraumatic, normocephalic, normal inspection - Eye Eye exam: Present: normal appearance, PERRL, EOMI Pupils: Present: normal accommodation - ENT ENT exam: Present: normal exam, normal orophraynx, mucous membranes moist, TM's normal bilaterally, normal external ear exam - Neck Neck exam: Present: normal inspection, full ROM. Absent: tenderness - Respiratory Respiratory exam: Present: normal lung sounds bilaterally. Absent: respiratory distress, wheezes, rales, rhonchi, accessory muscle use, decreased breath sounds, prolonged expiratory - Cardiovascular Cardiovascular Exam: Present: regular rate, normal rhythm, normal heart sounds. Absent: systolic murmur, diastolic murmur, rubs, gallop - GI/Abdominal GI/Abdominal exam: Present: soft, tenderness (palpable mild suprapubic tenderness), normal bowel sounds. Absent: guarding, rebound, hyperactive bowel sounds, hypoactive bowel sounds, organomegaly, bruit, pulsatile mass, hernia - Extremities Exam Extremities exam: Present: normal inspection, full ROM, normal capillary refill. Absent: tenderness - Back Exam Back exam: Present: normal inspection, full ROM. Absent: tenderness, CVA tenderness (R), CVA tenderness (L), muscle spasm, paraspinal tenderness - Neurological Exam Neurological exam: Present: alert, oriented X3, CN II-XII intact, normal gait, reflexes normal - Psychiatric Psychiatric exam: Present: normal affect, normal mood - Skin Skin exam: Present: warm, dry, intact, normal color. Absent: rash ED Medical Decision Making - Lab Data Result diagrams: 07/03/22 03:35 07/03/22 03:35 - Radiology Data Radiology results: report reviewed, image reviewed [address] [address] Ultrasound Report Signed Patient: DEDRA BROWN MR#: [id number] : 1985 Acct:[id number] Age/Sex: 36 / F ADM Date: 07/02/22 Loc: ED Attending Dr: Ordering Physician: CHARLES WEEMS Date of Service: 07/03/22 Procedure(s): US OB <= 14 weeks fetus Accession Number(s): [id number] cc: CHARLES WEEMS US OB <= 14 weeks fetus INDICATION / CLINICAL INFORMATION: Abdominal pain : COMPARISON: OB ultrasound 01/19/2020 no recent or ultrasound scrotum current gestation. FINDINGS: Technique: Using a transcutaneous probe, multiple grayscale, color Doppler, and M-mode Doppler images of the fetus, uterus, and ovaries were captured and stored. The uterus measures 15.8 x 6.5 x 6.8 cm. A single intrauterine gestational sac is present. Single fetus with heart rate of 163 bpm is demonstrated. Hill-Sachs, pole, and motion are present. Mean crown-rump length of 19.5 mm results in an estimated gestational age of 8 weeks 4 days, EDC 02/08/2023. Right ovary not identified. Left ovary measures 3.7 x 2.3 x 3.4 cm. IMPRESSION: 1. Single living intrauterine gestation as detailed. Signer Name: Becky Dahl II, MD Signed: 07/03/2022 6:32 AM Workstation Name: [id number] Transcribed By: SU Dictated By: BECKY DAHL II, MD Electronically Authenticated By: BECKY DAHL II, MD Signed Date/Time: 07/03/22631 DD/ 9 TD/TT: - Medical Decision Making This is a A0 36-year-old -[place] female who is approximately 7 to 8 weeks gestation who presents to the ED with complaint of acute onset persistent diffuse lower abdominal pain with nausea and vomiting for the last 1 week, worse in the last 3 days. Patient states that the pain has been constant and persistent and especially worsening with vomiting. In the ED, patient is alert and oriented x3 and is not in any distress. Patient is hemodynamically stable. Lab test results were reviewed and are all nonactionable. Transvaginal ult rasound showed a single live intrauterine of approximately 8 weeks and 4 days with a heart rate of 163 bpm and no abnormal findings. Patient was treated for pain in the ED and also treated for nausea in the ED. On reevaluation, patient's pain is well controlled medication. Patient has not had any nausea or vomiting during her ED stay. Patient was therefore discharged home on medications and advised to follow-up with her [employer] physician in 7 to 10 days for reevaluation or return to the ED immediately if symptoms get worse. - Differential Diagnosis UTI; Ovarian cyst; ectopic ; dehydration ED Disposition Clinical Impression: Nausea and vomiting in prior to 22 weeks gestation, Abdominal pain during in first trimester Disposition: 01 HOME / SELF CARE / HOMELESS Is pt being admited?: No Does the pt Need Aspirin: No Condition: Stable Instructions: Abdominal Pain During , [id number], Nausea and Vomiting, Adult, [id number], Morning Sickness, [id number], Abdominal Pain (ED) Additional Instructions: Tous les rsultats roseline tests de laboratoire ont t examins et sont tous non exploitables. L'chographie transvaginale a montr une seule grossesse intra- utrine vivante d'environ 8 semaines et 4 jours avec une frquence cardiaque ftale de 163 bpm. Aucune autre anomalie aigu n'a t identifie. Par consqu ent, maintenez un repos pelvien complet, prenez du Tylenol au besoin pour soulager la douleur et prenez roseline mdicaments contre la nause comme prescrit. Suivi avec le mdecin [employer] dans 7 10 jours pour une rvaluation ou retour immdiat aux urgences si les symptmes s'aggravent. Prescriptions: Acetaminophen [Tylenol] 500 mg PO Q6HR PRN #40 tablet PRN Reason: abdominal pain Promethazine [Phenergan] 25 mg PO Q6HR PRN #30 tab PRN Reason: Nausea Vit No.180/Iron/Folic [ Plus Vitamin-Mineral] 1 each PO DAILY #60 tab Referrals: SALLY COELHO MD [Staff Physician] - 7-10 days Time of Disposition: 06:41 Print Language: MONEGASQUE <LAUREN NANCE - Last Filed: 07/03/22 08:03> ED Review of Systems ROS: Stated complaint: STOMACH PAIN Other details as noted in HPI ED Course Vital Signs 07/02/22 07/03/22 19:51 04:11 Temperature 98.7 F Pulse Rate 95 H Respiratory 16 16 Rate Blood Pressure 131/84 Blood Pressure 131/84 [Right] O2 Sat by Pulse 100 Oximetry ED Medical Decision Making - Lab Data Result diagrams: 07/03/22 03:35 07/03/22 03:35 Critical care attestation.: If time is entered above; I have spent that time in minutes in the direct care of this critically ill patient, excluding procedure time.
[2022-07-03 06:20] LABS: Basophils % (Auto) 0.5 % (0.0-1.8); Eosinophils # (Auto) 0.1 K/mm3 (0.0-0.4); Eosinophils % (Auto) 1.6 % (0.0-4.3); Hematocrit 40.6 % (30.3-42.9); Hemoglobin 13.2 gm/dl (10.1-14.3); Lymphocytes # (Auto) 0.9 K/mm3 (1.2-5.4); Lymphocytes % (Auto) 17.6 % (13.4-35.0); Mean Corpuscular HGB Conc 32 % (30-34); Mean Corpuscular Volume 93 fl (79-97); Monocytes # (Auto) 0.7 K/mm3 (0.0-0.8); Monocytes % (Auto) 13.4 % (0.0-7.3); Platelet Count 245 K/mm3 (140-440); Red Blood Count 4.37 M/mm3 (3.65-5.03); Red Cell Distribution Width 13.6 % (13.2-15.2)
--- NOTE | 2022-07-03 06:36 | Ultrasound Report ---
US OB <= 14 weeks fetus INDICATION / CLINICAL INFORMATION: Abdominal pain : COMPARISON: OB ultrasound 01/19/2020 no recent or ultrasound scrotum current gestation. FINDINGS: Technique: Using a transcutaneous probe, multiple grayscale, color Doppler, and M-mode Doppler images of the fetus, uterus, and ovaries were captured and stored. The uterus measures 15.8 x 6.5 x 6.8 cm. A single intrauterine gestational sac is present. Single fet us with heart rate of 163 bpm is demonstrated. Hill-Sachs, pole, and motion are present. Mean crown-rump length of 19.5 mm results in an estimated gestational age of 8 weeks 4 days, EDC 2022. Right ovary not identified. Left ovary measures 3.7 x 2.3 x 3.4 cm. IMPRESSION: 1. Single living intrauterine gestation as detailed. Signer Name: Florencio Caballero II, MD Signed: 07/03/2022 6:32 AM Workstation Name: [id number]
[2022-07-03 06:49] LABS: Alanine Aminotransferase 12 units/L (7-56); Albumin 4.2 g/dL (3.9-5); Blood Urea Nitrogen 8 mg/dL (7-17); Calcium 8.7 mg/dL (8.4-10.2); Hemolysis Index 9
[2022-07-03 06:51] LABS: BUN/Creatinine Ratio 16
[2022-07-03 07:31] LABS: Color,Urine Straw (Yellow)
[2022-07-03 07:35] LABS: Mucus,Urine FEW /HPF; RBC,Urine < 1.0 /HPF (0.0-6.0)
== END 2022-07-03 08:44 | disposition home or self-care (01) ==
LOC: ED 18:00
DX: O21.9 Vomiting of pregnancy, unspecified (principal); O26.891 Other specified pregnancy related conditions, first trimester; R10.9 Unspecified abdominal pain; Z3A.01 Less than 8 weeks gestation of pregnancy
CPT/HCPCS: 36415; 76801; 80053; 81001; 81025; 84702; 85025; 99284; J3490; Q0162